=== PATIENT | male | born 1960 | race Caucasian/White ===

== ENCOUNTER 2017-12-21 11:06 | Emergency (ER) | payer SELFPAY ==
[~2017-12-21] VITALS: Ht 185.4 cm; Wt 81.5 kg
[2017-12-21 11:13] VITALS: BP 118/79; PULSE 84; RESP 16; TEMP 98.2; O2SAT 100
--- NOTE | 2017-12-21 11:32 | PD ---
HPI Chief Complaint: Fall Time Seen by Provider: 11:29 Travel History International Travel<30 days: No Contact w/Intl Traveler<30days: No Traveled to known affect area: No History of Present Illness HPI 57-year-old male presents emergency department for evaluation of left knee pain that started approximately 10 days ago. Says that he was walking in his house when he slipped and is unsure how he injured himself but denies any direct trauma to the knee. Patient says that he had very little or no pain over the next several days until he went to work. 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 Since Tuesday he says his pain has increased significantly and says his "calf is numb". Says his pain has since radiated up into his buttocks from the back of his leg and he is concerned about a serious process. Says the back of his knee feels swollen and he had a bruise. Patient says he has been using ibuprofen without significant relief. Of note, patient has a history of left Achilles repair but denies any pain of his Achilles tendon. Denies back pain or pain radiating to his feet. Denies head or neck trauma. Denies back trauma. PFSH Social History Tobacco Use: Yes Allergies-Medications (Allergen,Severity, Reaction): Coded Allergies: No Known Allergies (Unverified , 12/21/17) Reported Meds & Prescriptions Reported Meds & Active Scripts Active Robaxin (Methocarbamol) 500 Mg Tab 500 Mg PO TID 3 Days Review of Systems Except as stated in HPI: all other systems reviewed are Neg Physical Exam Narrative GENERAL: Well-nourished, well-developed patient, in NAD SKIN: Focused skin assessment warm/dry. No rashes or lesions. HEAD: Normocephalic. Atraumatic. EYES: No scleral icterus. No injection or drainage. PERRLA, EOMI THROAT: No pharyngeal injection, exudates, or tonsillar hypertrophy. Airway is patent. NECK: Supple, trachea midline. No JVD or lymphadenopathy. No meningismus. No midline tenderness CARDIOVASCULAR: Regular rate and rhythm without murmurs, gallops, or rubs. RESPIRATORY: Breath sounds equal bilaterally. No accessory muscle use. No wheezes, rales, or rhonchi MUSCULOSKELETAL: No cyanosis, or edema. Left lower extremity-small area of ecchymosis located in the medial crux of his knee, no significant effusion or edema. No erythema. Full range of motion with some restrictions of full extension, neurovascularly intact left lower extremity. Homans sign negative bilaterally. Negative varus or valgus. BACK: No CVA tenderness. No rash. No point tenderness on palpation of the spine. Data Data Last Documented VS Vital Signs Date Time Temp Pulse Resp B/P (MAP) Pulse Ox O2 Delivery O2 Flow Rate FiO2 12/21/17 11:13 98.2 84 16 118/79 (92) 100 Orders Orders Mandatory Outpatient Referral (12/21/17 11:36) Ed Discharge Order (12/21/17 11:39) MDM Medical Decision Making Medical Screen Exam Complete: Yes Emergency Medical Condition: Yes Differential Diagnosis Left knee hyperextension, tendinitis, bursitis, effusion Narrative Course 57-year-old male presents emergency department evaluation of left knee pain that started 10 days ago after what he describes a hyperextension of his knee. There is no obvious ecchymosis, significant edema. No erythema. Skin intact. Near full range of motion with some restrictions of full extension, no obvious tenderness to palpation. There is an area of muscle spasms and tender cords along the posterior aspect of his thigh along his hamstrings. No tenderness palpation of his back. Neurovascular intact. Suspect the patient has a hyperextension injury that is purely soft tissue. I did offer an x-ray however, patient would like to defer and he is concerned about his pain. I believe that his pain will be amenable to muscle relaxers while he performs knee exercises at home. I recommended that he take a few days off work to allow rehab on his own. A mandatory referral was placed as I am concerned about soft tissue injury such as ligamental damage. He is advised to follow-up with primary care physician and orthopedics. Diagnosis Primary Impression: Knee pain Qualified Codes: M25.562 - Pain in left knee Referrals: Orthopedist Departure Forms: Tests/Procedures, Work Release Enter return to work date: Dec 24, 2017 Additional Instructions: Perform slow but deliberate extensions and stretching of your legs to allow relaxation of your leg. I highly recommend he follow-up with an planning specialist for further evaluation. I also recommend you establish with a primary care physician for your regular care. Use muscle relaxers as prescribed. Use caution as a may make you feel drowsy. Scripts Methocarbamol (Robaxin) 500 Mg Tab 500 MG PO TID for Muscle Spasm for 3 Days, TAB 0 Refills Prov: Alley Gallegos MD 12/21/17 Disposition: 01 DISCHARGE HOME Condition: Stable Lissette Conklin Dec 21, 2017 11:32
[2017-12-21] MEDS ORDERED: ROBA500T PO (11:35)
== END 2017-12-21 11:50 | disposition home or self-care (01) ==
LOC: NEPK 11:06
DX: M25.562 Pain in left knee (principal)
CPT/HCPCS: 99283